=== PATIENT | male | born 1985 | race African-American/Black ===

== ENCOUNTER 2021-07-27 18:02 | Emergency (ER) | payer MEDICAID ==
[~2021-07-27] VITALS: Ht 185.4 cm; Wt 75.0 kg
[2021-07-27 18:15] VITALS: BP 147/84
== END 2021-07-27 21:05 | disposition left against medical advice (07) ==
LOC: ER 18:02
DX: Z53.21 Procedure and treatment not carried out due to patient leaving prior to being seen by health care provider (principal)